=== PATIENT | female | born 1980 | race African-American/Black ===

== ENCOUNTER 2019-08-21 11:05 | Day surgery (SDC) | payer BC, SELFPAY ==
[~2019-08-21] VITALS: Ht 177.8 cm; Wt 74.4 kg
[2019-08-21] MEDS ORDERED: LR 1,000 ML IV SCH (14:08)
[2019-08-21] MEDS ORDERED: ONDANSETRON HCL 4 MG/2 ML VIAL IVP PRN ×2 (14:15→14:45)
[2019-08-21] MEDS ORDERED: HYDROmorphone 1 MG INJ. 1 MG/ML AMPUL IVP PRN (14:15)
[2019-08-21] MEDS ORDERED: MEPERIDINE HCL/PF 25 MG/ML DISP.SYRIN IVP PRN (14:15)
[2019-08-21] MEDS ORDERED: IOHEXOL 100 ML IV ONE (14:43)
[2019-08-21] MEDS ORDERED: OXYCODONE/ACETAMINOPHEN 5-325 TABLET PO PRN ×2 (14:45)
[2019-08-21] MEDS ORDERED: HYDROcodone/ACETAMIN 5-325 MG TAB (NORCO/ VICODIN) PO PRN (14:45)
[2019-08-21] MEDS ORDERED: MIDAZOLAM HCL 5 MG/ML VIAL (VERSED) IV ONE (15:00)
[2019-08-21] MEDS ORDERED: PROPOFOL 200MG/ 20ML VIAL (DIPRIVAN) IV ONE (15:00)
[2019-08-21] MEDS ORDERED: fentaNYL CITRATE/PF 100 MCG/2 ML AMP ONE (15:00)
[2019-08-21] MEDS ORDERED: DEXAMETHASONE SOD PHOSPHATE 4 MG/ML VIAL ONE (15:00)
[2019-08-21] MEDS ORDERED: LR 1,000 ML IV.SOLN IV ONE (15:00)
[2019-08-21] MEDS ORDERED: SEVOFLURANE 15 MIN GAS INH ONE (15:00)
[2019-08-21] MEDS ORDERED: ONDANSETRON HCL 4 MG/2 ML VIAL ONE (15:00)
[2019-08-21] MEDS ORDERED: ROCURONIUM BROMIDE 10 MG/ML (ZEMURON) ONE (15:00)
[2019-08-21] MEDS ORDERED: SUCCINYLCHOLINE CHLORIDE 20 MG/ML(QUELICIN) ONE (15:00)
[2019-08-21] MEDS ORDERED: CEFAZOLIN 2 GM IVPB PREMIX 50 ML IV ONE (15:00)
[2019-08-21] MEDS ORDERED: MEPERIDINE HCL/PF 25 MG/ML DISP.SYRIN ONE (15:49)
[2019-08-21 17:46] VITALS: BP_SYST 122
== END 2019-08-21 17:46 | disposition home or self-care (01) ==
LOC: SDS 11:05 → SMU 11:06 → SDS 17:45
PROVIDERS: ATTEND Specialist
DX: N92.6 Irregular menstruation, unspecified (principal); N73.6 Female pelvic peritoneal adhesions (postinfective); N97.1 Female infertility of tubal origin; N85.6 Intrauterine synechiae; J45.909 Unspecified asthma, uncomplicated; Z88.6 Allergy status to analgesic agent; Z90.89 Acquired absence of other organs
CPT/HCPCS: 49320; 58350; 58555; 74740; C1727; C1782; J0330; J0690; J1100; J2175; J2250; J2405; J2704; J3010; J7120; Q9967; U0002